=== PATIENT | male | born 1950 | race Caucasian/White ===

== ENCOUNTER 2018-05-21 21:14 | Emergency (ER) | payer MEDICARE ==
[~2018-05-21] VITALS: Ht 182.9 cm; Wt 93.0 kg
[2018-05-21] MEDS ORDERED: LORazepam 1MG TABLET PO ONE (22:00)
[2018-05-21 22:04] LABS: BASOPHILS # (AUTO) 0.03 x10^3/uL (0-0.1); BASOPHILS % (AUTO) 0 % (0-1); EOSINOPHILS # (AUTO) 0.12 x10^3/uL (0-0.4); EOSINOPHILS % (AUTO) 1 % (1-7); LYMPHOCYTES % (AUTO) 11 % (22-44); MD NO; MEAN CORPUSCULAR HGB CONC 34.8 g/dL (33.2-36.2); MEAN CORPUSCULAR VOLUME 94.9 fL (81-97); MEAN PLATELET VOLUME 7.4 fL (7.4-10.4); MONOCYTES # (AUTO) 0.66 x10^3/uL (0.2-0.8); MONOCYTES % (AUTO) 7 % (2-9); NEUTROPHILS # (AUTO) 7.93 x10^3/uL (1.8-6.8); NEUTROPHILS % (AUTO) 81 % (42-75); PLATELET COUNT 215 x10^3/uL (130-400); RED BLOOD COUNT 4.89 x10^6/uL (4.38-5.82); RED CELL DISTRIBUTION WIDTH 13.6 % (9.4-14.8)
[2018-05-21] MEDS ORDERED: LORazepam 1MG TABLET ONE (22:04)
[2018-05-21 22:15] LABS: ALANINE AMINOTRANSFERASE 25 U/L (12-78); ALBUMIN 3.9 g/dL (3.4-5.0); ANION GAP 5 mmol/L (5-15); CALCIUM 8.8 mg/dL (8.5-10.1); CHLORIDE 112 mmol/L (98-107); CREATININE 1.04 mg/dL (0.7-1.3)
[2018-05-21 22:16] LABS: SALICYLATE LEVEL < 1.7 mg/dL (2.8-20.0)
[2018-05-21 22:17] LABS: ALKALINE PHOSPHATASE 95 U/L (45-117); BILIRUBIN,TOTAL 0.7 mg/dL (0.2-1.0); TOTAL PROTEIN 7.1 g/dL (6.4-8.2)
[2018-05-21 22:26] LABS: ACETAMINOPHEN < 2 mcg/mL (10-30)
[2018-05-22] MEDS ORDERED: ZIPRASIDONE 20 MG INJ IM ONE ×3 (00:30→05:30)
[2018-05-22] MEDS ORDERED: ZIPRASIDONE 20MG CAPSULE ONE (00:35)
[2018-05-22] MEDS ORDERED: ZIPRASIDONE 20MG CAPSULE PO ONE (01:00)
[2018-05-22] MEDS ORDERED: LORazepam 1MG TABLET ONE ×2 (02:06→15:17)
[2018-05-22] MEDS ORDERED: LORazepam 1MG TABLET PO ONE ×2 (02:30→15:30)
[2018-05-22 05:49] VITALS: BP 134/73
== END 2018-05-22 18:42 | disposition home or self-care (01) ==
LOC: ED 23:52
DX: F43.23 Adjustment disorder with mixed anxiety and depressed mood (principal)
CPT/HCPCS: 36415; 80053; 80307; 80329; 85025; 96372; 99284; J3486; G0480